=== PATIENT | male | born 1940 | race Caucasian/White ===

== ENCOUNTER 2019-07-17 13:19 | Inpatient (IN) | payer OTHER ==
[~2019-07-17] VITALS: Ht 167.6 cm; Wt 70.2 kg
[2019-08-01] VITALS (11 sets, daily range): BP systolic 109–153; BP diastolic 52–84; PULSE 51–70; TEMP 97.4–97.7
[2019-08-01 12:21] LABS: BASO % 0.6 % (0.0-2.0); EOS # 0.1 (0.0-0.7); EOS % 0.7 % (0-4.0); GRAN # 4.5 (1.4-6.5); GRAN % 63.5 % (42.2-75.2); HEMATOCRIT 41.2 % (42.0-52.0); HEMOGLOBIN 14.1 g/dl (13.5-18.0); LYMPH % 28.2 % (20.0-51.0); MEAN CELL VOLUME 92 fl (80.0-100.0); MEAN CORPUSCULAR HEMOGLOBIN 32 pg (27.0-31.0); MEAN CORPUSCULAR HGB CONC 34 g/dl (33.0-37.0); MEAN PLATELET VOLUME 9.7 fl (7.4-10.4); MONO # 0.5 (0.1-0.6); MONO % 6.9 % (1.7-9.3); PLATELET COUNT 235 K/mm3 (130-400); RED BLOOD COUNT 4.46 M/mm3 (4.20-5.60); REDCELL DISTRIBUTION WIDTH-CV 12.2 % (11.5-14.5)
[2019-08-01] MEDS ORDERED: ASPIRIN 81M81 MG/TA2 PO (12:31)
[2019-08-01] MEDS ORDERED: VITAMIN D31000 I1 PO (12:32)
[2019-08-01] MEDS ORDERED: LODINE400 MG PO (12:33)
[2019-08-01 12:35] LABS: ALBUMIN 4.8 gm/dL (3.5-5.0); BILIRUBIN,TOTAL 0.5 mg/dL (0.0-1.0); CALCIUM 9.6 mg/dL (8.4-10.2); CREATININE, serum 1.36 (0.66-1.25); TOTAL PROTEIN 7.8 gm/dL (6.4-8.2)
[2019-08-01] MEDS ORDERED: VITAMIN D 400400 IU PO (12:38)
[2019-08-01] MEDS ORDERED: LAMICTAL200 MG PO (12:39)
[2019-08-01] MEDS ORDERED: PRINIVIL5 MG PO (12:40)
[2019-08-01] MEDS ORDERED: LIDODERM 5% PATC1 EA TP (12:40)
--- NOTE | 2019-08-01 12:40 | NUR ---
The patient ambulated back to [place] [facility] independently using a steady gait and apeared to tolerate the activity well. Vital signs obtained. Consent signed. 20G IV started in right hand on second attempt, LR infusing without difficulty. Blood obtained from IV start for labs as ordered. EKG completed pre operatively. Lungs clear. Bowel sounds audible. Heart regular with murmur present. brought back to be at his bedside. Call light is within reach. The patient denies any needs at this time. Will cotinue monitor the patient.
[2019-08-01] MEDS ORDERED: PRAVACHOL80 MG PO (12:41)
[2019-08-01] MEDS ORDERED: MELAT3MGTAB PO (12:41)
[2019-08-01] MEDS ORDERED: PROBIOTIC GOLD1 EACH PO (12:42)
[2019-08-01] MEDS ORDERED: OMEGA-3 1000 MG1 CAP PO (12:42)
[2019-08-01] MEDS ORDERED: ECHINACEA400 MG PO (12:43)
--- NOTE | 2019-08-01 15:55 | NUR ---
PATIENT IS DROWSY AND SEDATED FROM SURGERY, OTHERWISE PATIENT IS A&OX4. BRADYCARDIA NOTED, POST-OP VSS. BOWEL SOUNDS ACTIVE ALL FOUR QUADRANTS. ABDOMINAL LAP SITES X5 LAYO WITH EDGES WELL APPROXIMATED. LOW ABDOMINAL TRANSVERSE LAYO WITH EDGES WELL APPROXIMATED. POSITIVE PEDAL PULSES EQUAL BILATERALLY. IV FLUIDS INFUSING TO RIGHT HAND IV. CALL LIGHT WITHIN REACH. WILL CONTINUE TO MONITOR.
--- NOTE | 2019-08-01 15:55 | NUR ---
PATIENT ARRIVED TO ROOM 348 VIA BED FROM PACU. PATIENT IS ALERT AND SEDATED FROM SURGERY. PATIENT SETTELED INTO ROOM. POST-OP VSS. WILL CONTINUE TO MONITOR.
--- NOTE | 2019-08-01 17:10 | NUR ---
PATIENT TOLERATING CLEAR LIQUIDS. PATIENT DENIES NAUSEA OR VOMITING. WILL CONTINUE TO MONITOR.
--- NOTE | 2019-08-01 19:04 | NUR ---
REPORT GIVEN TO RIAZ GARZA.
--- NOTE | 2019-08-01 19:05 | NUR ---
Bedside report received from RIAZ Gonzalez.
--- NOTE | 2019-08-01 20:00 | NUR ---
Patient awake and alert playing on his phone. Patient is oriented x4. Patient has complaints of nausea and cramping abdominal pain rated 6/10. Pain and nausea medications provided. Assessment complete. Patient's lap sites are clean and dry with edges well approximated. Patient is a very friendly and pleasant man. Patient requests something to eat or drink to help ease his stomache. Provided the patient with some broth and jello. Patient also admits that he does not like drinking water, clear juice provided. Patient is very thankful. No further needs at this time. Will continue to monitor. Call light within reach.
[2019-08-02] VITALS (8 sets, daily range): BP systolic 112–139; BP diastolic 48–58; PULSE 61–75; TEMP 97.5–98.3
--- NOTE | 2019-08-02 | NUR ---
patient sleeps between disturbances. Rates pain a 3/10 in his low abdomen. Tylenol was provided. Patient requests more broth and some juice, provided. No further needs at this time. Will continue to monitor. Call light within reach.
--- NOTE | 2019-08-02 06:42 | NUR ---
report given to RIAZ Gonzalez
[2019-08-02 07:10] LABS: HEMOGLOBIN 12.3 g/dl (13.5-18.0)
[2019-08-02 07:11] LABS: HEMATOCRIT 36.8 % (42.0-52.0)
[2019-08-02 07:24] LABS: CALCIUM 9.2 mg/dL (8.4-10.2); CREATININE, serum 1.52 (0.66-1.25)
[2019-08-02 07:39] LABS: POTASSIUM 5.9 mmol/L (3.4-5.0)
--- NOTE | 2019-08-02 08:00 | NUR ---
UPON ENTRY TO ROOM THE PATIENT IS SITTING UP IN BED WATCHING TV. PATIENT IS A&OX4. VSS. BOWEL SOUNDS ACTIVE ALL FOUR QUADRANTS. ABDOMINAL LAP SITES X5 LAYO WITH EDGES WELL APPROXIMATED. 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 PATIENT TOLERATING CLEAR LIQUIDS WITHOUT ANY COMPLAINTS OF N/V. POSITIVE PEDAL PULSES EQUAL BILATERALLY. IV FLUIDS INFUSING TO RIGHT HAND IV VIA PUMP. CALL LIGHT WITHIN REACH. PATIENT DENIES ANY NEEDS AT THIS TIME.
--- NOTE | 2019-08-02 08:25 | NUR ---
DR. SANFORD CALLED AND NOTIFIED THAT THE LAB CALLED A CRITICAL POTASSIUM RESULT OF 5.9. DR. SANFORD ORDERED FOR THE IV FLUIDS TO BE STOPPED. PATIENT'S IV TO INT.
[2019-08-02 13:15] LABS: COLLECTION METHOD CLEAN CATCH
[2019-08-02 13:26] LABS: PH 5 (5-8); SQUAMOUS EPITHELIAL None Seen /hpf; URINE APPEARANCE Clear; URINE BACTERIA None Seen /hpf; URINE BILIRUBIN Negative (NEGATIVE); URINE BLOOD Negative (NEGATIVE); URINE COLOR Straw; URINE GLUCOSE 1+ (NEGATIVE); URINE KETONE Negative (NEGATIVE); URINE LEUKOCYTE ESTERASE Negative (NEGATIVE); URINE NITRATE Negative (NEGATIVE); URINE PROTEIN(semi-quant) Negative (NEGATIVE); URINE RBC 0-2 /hpf; URINE UROBILINOGEN Negative (NEGATIVE)
--- NOTE | 2019-08-02 13:29 | NUR ---
MARTIN met with the patient and patient's , Vivian (ph#[phone]), to discuss discharge plan. The [place] of [place] with his . He reports independence with ADLs and does not have any DME. The patient's primary care provider is Sebastian Joseph at the [facility] and he also receives his medications by mail through the [place] or he will utilize [facility]. He reports no difficulties obtaining his meds. The patient does not have a DPOA-HC in EMR, but he states that he does have one completed and that his DPOA-HC is his . The patient plans to return home with his upon discharge. No additional needs at this time.
[2019-08-02 14:48] LABS: CALCIUM 9.1 mg/dL (8.4-10.2); CREATININE, serum 1.31 (0.66-1.25); POTASSIUM 5.2 mmol/L (3.4-5.0)
--- NOTE | 2019-08-02 14:55 | NUR ---
PATIENT VOIDED 350 MLS OF CLEAR, PALE YELLOW URINE. POST-VOID BLADDER SCAN RESIDUAL 32 MLS.
--- NOTE | 2019-08-02 16:30 | NUR ---
PATIENT VOIDED 350 MLS OF URINE. PATIENT POST-VOID RESIDUAL IS 75 MLS.
--- NOTE | 2019-08-02 21:00 | NUR ---
Pt. laying in bed at this time. Pt. is A&OX3, assessment complete. IV to rt. hand patent, fluids infusing per orders. Abd. lap sites and low transverse incisions CDI. Pt. reports pain at a 4 on pain scale. Pt. denies further needs, call light within reach.
[2019-08-03 03:59] VITALS: BP 123/43; PULSE 73; TEMP 98.4
[2019-08-03 07:23] LABS: BASO % 0.1 % (0.0-2.0); GRAN # 12.5 (1.4-6.5); GRAN % 87.1 % (42.2-75.2); HEMOGLOBIN 10.9 g/dl (13.5-18.0); LYMPH # 1.1 (1.2-3.4); LYMPH % 7.6 % (20.0-51.0); MEAN CELL VOLUME 96 fl (80.0-100.0); MEAN CORPUSCULAR HEMOGLOBIN 31 pg (27.0-31.0); MEAN CORPUSCULAR HGB CONC 33 g/dl (33.0-37.0); MEAN PLATELET VOLUME 10.3 fl (7.4-10.4); MONO # 0.7 (0.1-0.6); MONO % 4.6 % (1.7-9.3); PLATELET COUNT 196 K/mm3 (130-400); RED BLOOD COUNT 3.48 M/mm3 (4.20-5.60); REDCELL DISTRIBUTION WIDTH-CV 12.8 % (11.5-14.5)
[2019-08-03 07:32] LABS: HEMATOCRIT 33.3 % (42.0-52.0)
[2019-08-03 07:36] LABS: CALCIUM 8.2 mg/dL (8.4-10.2); CREATININE, serum 1.04 (0.66-1.25); POTASSIUM 4.4 mmol/L (3.4-5.0)
[2019-08-03 07:45] VITALS: BP 137/50; PULSE 65; TEMP 98
--- NOTE | 2019-08-03 09:00 | NUR ---
Patient alert and oriented. Bowel sounds present all quadrants. Incision sites clean dry and intact. Patient reports passing gas and has had a bowel movement. Patient reports pain is under control.
[2019-08-03 12:03] VITALS: BP 118/52; PULSE 52; TEMP 97.5
--- NOTE | 2019-08-03 15:01 | NUR ---
Discharge instructions given to patient and spouse, no questions at this time. Taken via wheel chair to patient drop off/picket [employer] by surgical staff to private vehicle. Patient discharged to home.
== END 2019-08-03 15:00 | disposition home or self-care (01) | DRG 982 ==
LOC: SURG 08-01 11:06 → INPTSU 08-01 11:06 → SURG 08-01 13:00
PROVIDERS: Nurse Practitioner Family; ADMIT Surgery
PROC: 8E0W3CZ Robotic Assisted Procedure of Trunk Region, Percutaneous Approach (ICD-10-PCS; 2019-08-01)
PROC: 0DB80ZZ Excision of Small Intestine, Open Approach (ICD-10-PCS; principal; 2019-08-01 14:00)
DX: C49.A2 Gastrointestinal stromal tumor of stomach (principal); N17.9 Acute kidney failure, unspecified; N40.0 Benign prostatic hyperplasia without lower urinary tract symptoms; F32.9 Major depressive disorder, single episode, unspecified; F43.10 Post-traumatic stress disorder, unspecified; E78.5 Hyperlipidemia, unspecified; M10.9 Gout, unspecified; E87.5 Hyperkalemia; E11.22 Type 2 diabetes mellitus with diabetic chronic kidney disease; I12.9 Hypertensive chronic kidney disease with stage 1 through stage 4 chronic kidney disease, or unspecified chronic kidney disease; D64.9 Anemia, unspecified; E86.0 Dehydration; E11.65 Type 2 diabetes mellitus with hyperglycemia; M19.90 Unspecified osteoarthritis, unspecified site; Z79.82 Long term (current) use of aspirin
CPT/HCPCS: 99222; 99232-AI; A4314; J0690; J1100; J1650; J1815; J2250; J2370; J2405; J2704; J7030; J7050; J7120